=== PATIENT | male | born 1970 | race Caucasian/White ===

== ENCOUNTER 2021-03-31 13:50 | Inpatient (IN) | payer OTHER ==
[~2021-03-31] VITALS: Ht 182.9 cm; Wt 106.6 kg
[2021-03-31 13:55] VITALS: BP 114/74
[2021-03-31 14:44] LABS: ABSOLUTE LYMPHOCYTES 1.1 thou/uL (0.8-5.3); ABSOLUTE MONOCYTES 0.5 thou/uL (0.0-1.2); ABSOLUTE NEUTROPHILS 5.2 thou/uL (1.6-8.1); BASOPHILS 0.3 %; EOSINOPHILS 0.1 %; HEMATOCRIT 41.3 % (42.0-52.0); HEMOGLOBIN 14.3 gm/dL (14.0-18.0); LYMPHOCYTES 15.8 %; MCH 29.5 pg (26.0-34.0); MCHC 34.6 g/dL (28.0-37.0); MCV 85.3 fL (80.0-100.0); MONOCYTES 7.1 %; MPV 7.1 fl. (7.2-11.1); NUCLEATED RBCS 0 /100WBC; PLATELET COUNT* 328 thou/uL (150-400); POLYS 76.7 %; RBC 4.83 mil/uL (4.50-6.00); RDW-CV 13.3 % (10.5-14.5); WBC 6.8 thou/uL (4.0-11.0)
[2021-03-31 14:53] LABS: CALCIUM 8.6 mg/dL (8.5-10.1); CREATININE 0.8 mg/dL (0.6-1.3); POTASSIUM 3.5 mmol/L (3.5-5.1)
[2021-03-31 15:04] LABS: ALBUMIN 3.3 g/dL (3.4-5.0); TOTAL BILIRUBIN 0.8 mg/dL (<0.1-1.0); TOTAL PROTEIN 7.7 g/dL (6.4-8.2)
--- NOTE | 2021-03-31 15:11 | EKG ---
[place] [address] ELECTROCARDIOGRAM REPORT Name: GERARD ROONEY Room: [facility]#: [id number] Admission: 03/31/21 Attend Phys: Discharge: Date of : 70 Date of Service: 03/31/21 1452 Report #: [id number] THIS REPORT FOR: //name// [facility] ED Test Date: 2021-03-31 Test Time: 14:52:28 Pat Name: GERARD ROONEY Department: Room: Gender: Securities Analyst: [facility] : 1970 Requested By: Jose Maria Kilpatrick Order Number: [id number] MD: Gerard Bassett Measurements Intervals [place]ley Rate: 85 P: 56 MD: 193 QRS: -9 QRSD: 97 T: 17 QT: 369 QTc: 439 Interpretive Statements Sinus rhythm Probable left atrial enlargement RSR' in V1 or V2, probably normal variant No previous ECG available for comparison Electronically Signed On 03-31-2021 15:11:47 COMMUNICATIONS COORDINATOR by Gerard Bassett [email or web address] <ELECTRONICALLY SIGNED> By: Gerard Bassett MD, [facility] 03/31/21 1511 145 145 Gerard Bassett MD, [facility] /EPI
[2021-03-31 15:50] LABS: BE 2.3 mmol/L (-2 to +3); PCO2 35.2 mmHg (35.0-45.0); PO2 68.5 mmHg (75.0-100.0); pH 7.477 (7.340-7.450)
[2021-03-31 20:31] VITALS: BP 140/77
[2021-03-31 20:45] VITALS: BP 133/84
[2021-04-01] VITALS: BP 132/80
[2021-04-01 04:00] VITALS: BP 135/83
[2021-04-01 06:00] LABS: HEMATOCRIT 39.2 % (42.0-52.0); HEMOGLOBIN 13.6 gm/dL (14.0-18.0); MCH 29.5 pg (26.0-34.0); MCHC 34.6 g/dL (28.0-37.0); MCV 85.2 fL (80.0-100.0); MPV 7.1 fl. (7.2-11.1); RBC 4.6 mil/uL (4.50-6.00); RDW-CV 13.2 % (10.5-14.5); WBC 3.9 thou/uL (4.0-11.0)
[2021-04-01 06:31] LABS: CALCIUM 8.9 mg/dL (8.5-10.1); CREATININE 0.7 mg/dL (0.6-1.3); MAGNESIUM 2.4 mg/dL (1.8-2.4); POTASSIUM 3.5 mmol/L (3.5-5.1); TOTAL BILIRUBIN 0.5 mg/dL (<0.1-1.0); TOTAL PROTEIN 7.5 g/dL (6.4-8.2)
[2021-04-01 08:00] VITALS: BP 126/81
[2021-04-01 12:07] VITALS: BP 133/78
[2021-04-01 16:02] VITALS: BP 125/75
[2021-04-01 20:15] VITALS: BP 120/68
[2021-04-02] VITALS: BP 111/73
[2021-04-02 04:00] VITALS: BP 128/76
[2021-04-02 07:45] VITALS: BP 124/74
[2021-04-02 09:31] LABS: HEMATOCRIT 39.5 % (42.0-52.0); HEMOGLOBIN 13.4 gm/dL (14.0-18.0); MCH 29.4 pg (26.0-34.0); MCHC 33.9 g/dL (28.0-37.0); MCV 86.8 fL (80.0-100.0); MPV 6.9 fl. (7.2-11.1); RBC 4.55 mil/uL (4.50-6.00); RDW-CV 13.4 % (10.5-14.5); WBC 8.8 thou/uL (4.0-11.0)
[2021-04-02] MEDS ORDERED: DOXYCYCLINE 10100 MG PO (09:31)
[2021-04-02] MEDS ORDERED: CEFDINIR300 MG PO (09:31)
[2021-04-02] MEDS ORDERED: DEXAMETHASONE 22 M1 PO (09:31)
[2021-04-02 09:51] LABS: ALBUMIN 3.1 g/dL (3.4-5.0); CALCIUM 8.9 mg/dL (8.5-10.1); CREATININE 0.7 mg/dL (0.6-1.3); MAGNESIUM 2.5 mg/dL (1.8-2.4); POTASSIUM 3.7 mmol/L (3.5-5.1); TOTAL BILIRUBIN 0.5 mg/dL (<0.1-1.0); TOTAL PROTEIN 7.2 g/dL (6.4-8.2)
[2021-04-02 10:45] VITALS: BP 124/74
[2021-04-02 13:27] VITALS: BP 122/68
[2021-04-02 14:59] VITALS: BP 124/74
== END 2021-04-02 15:00 | disposition home or self-care (01) | DRG 177 ==
LOC: M.ERS 13:50 → M.ORTHSURG 15:10 → M.TBA-ER 15:10 → M.ORTHSURG 21:30
PROVIDERS: Family Medicine; ADMIT Internal Medicine; ATTEND Internal Medicine
PROC: XW033E5 Introduction of Remdesivir Anti-infective into Peripheral Vein, Percutaneous Approach, New Technology Group 5 (ICD-10-PCS; principal; 2021-03-31)
DX: U07.1 COVID-19 (principal); J96.01 Acute respiratory failure with hypoxia; J12.82 Pneumonia due to coronavirus disease 2019; J15.6 Pneumonia due to other Gram-negative bacteria; R74.01 Elevation of levels of liver transaminase levels; R73.9 Hyperglycemia, unspecified